=== PATIENT | male | born 1965 | race Caucasian/White ===

== ENCOUNTER 2024-01-04 23:18 | Emergency (ER) | payer SELFPAY ==
[~2024-01-04] VITALS: Ht 177.8 cm; Wt 80.0 kg
[2024-01-04 23:22] VITALS: BP 128/89; PULSE 100; RESP 16; TEMP 98.6; O2SAT 99
[2024-01-05] MEDS ORDERED: SODIUM CHLORIDE 0.9% 1,000 ML IV ONE
== END 2024-01-05 00:36 | disposition left against medical advice (07) ==
LOC: ER 23:18
DX: E11.65 Type 2 diabetes mellitus with hyperglycemia (principal); Z04.1 Encounter for examination and observation following transport accident
CPT/HCPCS: 99283; 71045; 82962; J7030